=== PATIENT | female | born 1950 | race Caucasian/White ===

== ENCOUNTER 2020-01-13 09:20 | Outpatient (CLI) | payer MEDICARE ==
--- NOTE | 2020-01-13 10:12 | BD ---
EXAM: DEXA bone density examination HISTORY: 69-year-old postmenopausal female for screening COMPARISON: None FINDINGS: L1--bone mineral density 0.813 g/sq cm; T score -1.6 L2--bone mineral density 0.800 g/sq cm; T score -2.1 L3--bone mineral density 0.814 g/sq cm; T score -2.5 L4--bone mineral density 0.883 g/sq cm; T score -1.6 Total L1-L4--bone mineral density 0.831 g/sq cm; T score -2.0 Left femoral neck--bone mineral density0.657; T score -1.7 Total proximal left femur--bone mineral density 0.800; T score -1.2 IMPRESSION: Osteopenia. This patient has a 10 year WHO fracture risk of a major osteoporotic fracture of 17% and of a hip fracture of 2.5%.
== END 2020-01-13 09:21 | disposition home or self-care (01) ==
LOC: BICMAMMO 09:20
PROVIDERS: ATTEND Family Medicine
DX: Z13.820 Encounter for screening for osteoporosis (principal); M85.89 Other specified disorders of bone density and structure, multiple sites
CPT/HCPCS: 77080

== ENCOUNTER 2023-01-09 14:30 | Emergency (ER) | payer MEDICARE ==
[2023-01-09 15:09] LABS: #Basophils 0.1 thou/uL (0.0-0.2); #Eosinphils 0.4 thou/uL (0.0-0.7); #Monocytes 0.9 thou/uL (0.11-0.59); #Neutrophils 9.5 thou/uL (1.40-6.50); %Basophils 0.5 % (0.0-1.0); %Lymphocytes 12.8 % (21.0-51.0); %Monocytes 7.5 % (0.0-10.0); %Neutrophils 75.9 % (42.0-75.0); Hematocrit 42.4 % (36.0-47.0); Hemoglobin 14.1 g/dL (12.0-16.0); Mean Corpuscular HGB CONC 33.3 g/dL (32.0-36.0); Mean Corpuscular Hemoglobin 30.3 pg (27.0-31.0); Mean Corpuscular Volume 91.2 fl (78.0-98.0); Mean Platelet Volume 10.2 fL (7.4-10.4); Platelet Count 301 10x3/uL (130-400); RBC Distribution Width 14.6 % (11.5-14.5); Red Blood Cell (RBC) Count 4.65 mill/uL (4.20-5.40); White Blood Cell (WBC) Count 12.4 10x3/uL (4.8-10.8)
[2023-01-09 15:31] LABS: Troponin I Less than 0.010 ng/mL (< 0.028)
[2023-01-09 15:34] LABS: ALT (SGPT) 22 U/L (8-55); AST (SGOT) 21 U/L (5-34); Alkaline Phosphatase 77 U/L (40-110); Anion Gap 12 mmol/L (10-20); BUN (Urea Nitrogen) 14 mg/dL (9.8-20.1); Bilirubin, Total 0.2 mg/dL (0.2-1.2); Calc. Creatinine Clearance 0 mL/min (70-130); Calcium 9.3 mg/dL (7.8-10.44); Carbon Dioxide 25 mmol/L (23-31); Chloride 101 mmol/L (98-107); Estimated GFR 64; Globulin 3.4 g/dL (2.4-3.5); Glucose 146 mg/dL (83-110); Potassium 3.4 mmol/L (3.5-5.1); Protein, Total 7.4 g/dL (5.8-8.1); Sodium 135 mmol/L (136-145)
== END 2023-01-09 17:15 | disposition home or self-care (01) ==
LOC: ERS 14:30
DX: R07.9 Chest pain, unspecified (principal)
CPT/HCPCS: 71045; 80053; 83880; 85025; 93005